=== PATIENT | male | born 1985 | race Caucasian/White ===

== ENCOUNTER 2018-08-03 11:55 | Emergency (ER) | payer MEDICAID ==
[~2018-08-03] VITALS: Ht 157.5 cm; Wt 52.6 kg
[2018-08-03 11:55] VITALS: BP 105/63
--- NOTE | 2018-08-03 11:55 | NUR ---
PT PLACED IN BD 7 BY EMS ACCOMPANIED BY DANIEL STAFFORD.
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
--- NOTE | 2018-08-03 12:10 | NUR ---
Patient being evaluated by physician at bedside.
[2018-08-03] MEDS ORDERED: KETOROLAC 60 MG/2 ML VIAL IM ONE (12:15)
--- NOTE | 2018-08-03 12:24 | NUR ---
Patient taken to XRAY via wheelchair by tech.
[2018-08-03] MEDS ORDERED: BACITRACIN OINT 500 UNITS/GM PKT TP ONE (13:06)
[2018-08-03 13:45] VITALS: BP 103/60
--- NOTE | 2018-08-03 13:45 | NUR ---
PT MEDICALLY CLEARED BY DR. HOLLOWAY. PT DISCHARGED WITH [facility] .
== END 2018-08-03 13:45 ==
LOC: MED 11:55
DX: S80.02XA Contusion of left knee, initial encounter (principal); S20.20XA Contusion of thorax, unspecified, initial encounter; M25.551 Pain in right hip; M54.2 Cervicalgia; Z02.89 Encounter for other administrative examinations; V00.131A Fall from skateboard, initial encounter; Y93.51 Activity, roller skating (inline) and skateboarding; Y92.89 Other specified places as the place of occurrence of the external cause; Y99.8 Other external cause status
CPT/HCPCS: 71101; 73030; 73562; 96372; 99283; J1885

== ENCOUNTER 2020-02-15 19:04 | Emergency (ER) | payer MEDICAID ==
[~2020-02-15] VITALS: Ht 165.1 cm; Wt 49.9 kg
[2020-02-15 19:18] VITALS: BP 131/80
--- NOTE | 2020-02-15 19:24 | NUR ---
TO LOBBY A/W BED AMBULATORY
[2020-02-15 19:25] VITALS: BP 131/80
--- NOTE | 2020-02-15 20:20 | NUR ---
SEEN AND EXAMINED BY PA WITH ORDER, CARRIED OUT.
[2020-02-15] MEDS ORDERED: KETOROLAC 60 MG/2 ML VIAL IM ONE (20:25)
--- NOTE | 2020-02-15 20:25 | NUR ---
PATIENT REFUSED MEDICINE, PA NOTED
--- NOTE | 2020-02-15 21:00 | NUR ---
PATIENT ELOPED FROM FACILITY. DISCHARGE INSTRUCTIONS NOT GIVEN TO PATIENT. FELICITA NORMAN NOTIFIED.
== END 2020-02-15 21:00 | disposition left against medical advice (07) ==
LOC: MED 19:04
DX: S00.12XA Contusion of left eyelid and periocular area, initial encounter (principal); F17.290 Nicotine dependence, other tobacco product, uncomplicated; F15.90 Other stimulant use, unspecified, uncomplicated; F11.90 Opioid use, unspecified, uncomplicated; V29.9XXA Motorcycle rider (driver) (passenger) injured in unspecified traffic accident, initial encounter; Y93.89 Activity, other specified; Y92.89 Other specified places as the place of occurrence of the external cause; Y99.8 Other external cause status
CPT/HCPCS: 99281; J1885